=== PATIENT | male | born 1960 | race Caucasian/White ===

== ENCOUNTER 2020-01-23 16:05 | Emergency (ER) | payer SELFPAY ==
[~2020-01-23] VITALS: Ht 170.2 cm; Wt 86.2 kg
[2020-01-23 16:11] VITALS: BP_SYST 152
--- NOTE | 2020-01-23 16:15 | NUR ---
Patient to ER bed 2 to gown for evaluation. Side rails up. Report given to KOKO Ceja.
--- NOTE | 2020-01-23 16:18 | NUR ---
ER Dr. Sanchez at bedside examining patient.
--- NOTE | 2020-01-23 16:25 | NUR ---
# 20 gauge angiocath placed to LAC. Use of asceptic technique. Opsite placed over site. Blood return noted. Blood for lab drawn from site. Flushed with 10 cc of normal saline. No evidence of infiltration noted. Patient tolerated well.
[2020-01-23] MEDS ORDERED: KETOROLAC TROMETHAMINE 30 MG VIAL IVP ONE (16:30)
[2020-01-23] MEDS ORDERED: LORazepam 2 MG/ML VIAL IVP ONE (16:30)
[2020-01-23] MEDS ORDERED: ONDANSETRON HCL 4 MG/2 ML VIAL IVP ONE (16:30)
[2020-01-23 16:54] LABS: HEMOGLOBIN 16.8 g/dL (14.0-18.0); WHITE BLOOD COUNT (AUTO) 9.1 K/uL (4.8-10.8)
--- NOTE | 2020-01-23 17:07 | NUR ---
medicated the pt w/ Ativan, Toradol, and Zofran, per MD order. Will reasses
[2020-01-23 17:09] LABS: BASOPHILS % (AUTO) 0.2 % (0.0-2.0); EOSINOPHILS % (AUTO) 0.4 % (0.0-4.0); HEMATOCRIT 49.5 % (36-54); LYMPHOCYTES % (AUTO) 11.5 % (20.5-51.5); MEAN CORPUSCULAR HEMOGLOBIN 33 pg (27-31); MEAN CORPUSCULAR HGB CONC 34 % (32-36); MEAN CORPUSCULAR VOLUME 98 fL (79.0-98.0); MONOCYTES # (AUTO) 0.3 K/uL (0.0-1.0); MONOCYTES % (AUTO) 3.1 % (1.7-9.3); NEUTROPHILS # (AUTO) 7.7 K/uL (1.8-7.7); NEUTROPHILS % (AUTO) 84.8 % (40.0-70.0); PLATELET COUNT (AUTO) 135 K/uL (130-430); RED BLOOD CELL COUNT(AUTO) 5.05 MIL/uL (4.2-6.2); RED CELL DISTRIBUTION WIDTH 12.4 % (9.0-15.0)
[2020-01-23 17:23] LABS: INR 1.1 (0.80-1.20); PROTHROMBIN TIME 10.7 SECS (9.5-12.5)
--- NOTE | 2020-01-23 17:30 | NUR ---
Patient transported to radiology via gurney, accompanied by site inspector.
[2020-01-23 17:32] LABS: ANION GAP 10 (5-15); CALCIUM 9.3 mg/dL (8.4-11.0); CHLORIDE 99 mmol/L (98-107); CREATININE 1.11 mg/dL (0.55-1.30); POTASSIUM 3.7 mmol/L (3.5-5.1); SODIUM SERUM 134 mmol/L (136-145); UREA NITROGEN, BLOOD 13 mg/dL (8-21)
[2020-01-23 17:35] LABS: GFR AFRICAN AMERICAN 87 mL/min (>90); GLUCOSE 455 mg/dL (70-99)
[2020-01-23 17:39] LABS: ALANINE AMINOTRANSFERASE 111 U/L (12-78); ASPARTATE AMINOTRANSFERASE 79 U/L (10-37)
[2020-01-23 17:40] LABS: ALBUMIN 4.2 g/dL (3.4-4.8); LIPASE 155 U/L (73-393)
[2020-01-23 17:41] LABS: ACETAMINOPHEN < 1 ug/mL (1-30); ALCOHOL, BLOOD < 3 mg/dL (<10)
[2020-01-23] MEDS ORDERED: NACL 0.9% 2,000 ML IV ONE (18:00)
[2020-01-23] MEDS ORDERED: INSULIN REGULAR, HUMAN 10 UNITS/0.1 ML INJ IVP ONE (18:00)
[2020-01-23 18:03] LABS: BILIRUBIN,URINE NEGATIVE (NEGATIVE); CLARITY/URINE CLEAR (CLEAR); COLOR,URINE YELLOW (YELLOW); GLUCOSE,URINE 3+ (NEGATIVE); KETONES,URINE NEGATIVE (NEGATIVE); LEUKOCYTE ESTERASE ,URINE NEGATIVE (NEGATIVE); NITRITE, URINE NEGATIVE (NEGATIVE); PH,URINE 5.5 (5.0-8.0); PROTEIN URINE TRACE (NEGATIVE); UROBILINOGEN,URINE 0.2 (0.2-1.0)
[2020-01-23 18:12] LABS: BLOOD, URINE TRACE (NEGATIVE)
--- NOTE | 2020-01-23 18:12 | NUR ---
medicated the pt w/ Insulin 12 IVP per MD order. Glucose was 455 per lab. NS 1l infusing per md order
[2020-01-23 18:17] LABS: COCAINE, URINE POSITIVE (NEG <=150)
[2020-01-23 18:18] LABS: BARBITURATE, URINE NEGATIVE (NEG <=200); BENZODIAZEPINE, URINE NEGATIVE (NEG <=150); CANNABINOID, URINE NEGATIVE (NEG <=50); METHAMPHETAMINES SCREEN,URINE NEGATIVE (NEG <=500); OPIATE, URINE NEGATIVE (NEG <=100); PHENCYCLIDINE SCREEN,URINE NEGATIVE (NEG <=25); UR TRICYCLIC ANTIDEPRESSANTS NEGATIVE (NEG <=300); URINE AMPHETAMINE NEGATIVE (NEG <=500); URINE METHADONE NEGATIVE (NEG <=200); URINE OXYCODONE SCREEN NEGATIVE (NEG <=100); URINE PROPOXYPHENE SCREEN NEGATIVE (NEG <=300)
[2020-01-23 18:36] LABS: BACTERIA,URINE FEW /HPF (None Seen); RBC,URINE NONE SEEN /HPF (0-3); WBC,URINE NONE SEEN /HPF (0-3)
--- NOTE | 2020-01-23 19:05 | NUR ---
Patient given written and verbal discharge instructions and verbalizes understanding. ER MD discussed with patient the results and treatment provided. Patient in stable condition. ID arm band removed. IV catheter removed intact and dressing applied, no active bleeding. Rx of Zofran given. Patient educated on pain management and to follow up with PMD. Pain Scale 0/10. Opportunity for questions provided and answered. Medication side effect fact sheet provided.
--- NOTE | 2020-01-23 19:28 | NUR ---
report given to Bushra SUTHERLAND. Attempted to call the pt's son, Chavo [phone]. Voice message left. Unable to contact the son at this moment.
--- NOTE | 2020-01-23 19:30 | NUR ---
Report recieved from KOKO Ceja. Pt resting in bed 2. Pt son is not picking up cellphone to picker box operator pt for d/c. Voicemail has been left, Number provided is [phone], Chavo.
[2020-01-23 20:10] VITALS: BP_SYST 152
--- NOTE | 2020-01-23 20:10 | NUR ---
Patient given written and verbal discharge instructions and verbalizes understanding. ER MD discussed with patient the results and treatment provided. Patient in stable condition. ID arm band removed. IV catheter removed intact and dressing applied, no active bleeding. Rx of Zofran given. Patient educated on pain management and to follow up with PMD. Opportunity for questions provided and answered. Medication side effect fact sheet provided.
== END 2020-01-23 20:10 | disposition home or self-care (01) ==
LOC: SED 16:05
DX: R10.84 Generalized abdominal pain (principal); E11.65 Type 2 diabetes mellitus with hyperglycemia; F14.129 Cocaine abuse with intoxication, unspecified; R11.2 Nausea with vomiting, unspecified
CPT/HCPCS: 36415; 71045; 74176; 80053; 80307; 81000; 82962; 83605; 83690; 84484; 85025; 85610; 85730; 87040; 87086; 93005; 96361; 96374; 96375; 99285; G0480; G0481; G0482; J1885; J2060; J2405; J7030; J1815